=== PATIENT | male | born 2005 ===

== ENCOUNTER 2025-08-05 12:50 | Outpatient (AMB) | payer OTHER, SELFPAY ==
--- NOTE | 2025-08-05 12:55 | MHC.PC.OV ---
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 Urology Physician Assistant Required: No Accompanied by: Self / Same As Patient Allergies pollen extracts Allergy (Unknown, Verified 08/05/25 13:17) Unknown Medication List - Last Reconciled 08/05/25 by IVONNE Layton No Known Home Meds Tobacco use date assessed: 08/05/25 Dental Screening Dental Screen Date: 08/05/25 Did you have a dental visit in the last 12 months?: Yes Did you have a dental problem in the last 6 months where you did not have access to dental care?: No Was dental information given to patient?: Patient has dentist HPI [employer]OUR[employer]IAN [employer] 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 He is here with complaints of a cough producing blood-tinged sputum. He reports these symptoms started about three days ago and are accompanied by a stuffy nose and sore throat. He also experienced headache and body aches on the first day, but these symptoms have since subsided. He denies fever or chills. He notes an episode of nearly choking on what he described as sticky saliva while lying down. The patient reports occasional chest pain that occurs roughly every two weeks, comes on suddenly, and resolves on its own. This pain is not associated with dizziness, shortness of breath, or heart palpitations. His past medical history is significant for asthma and a pollen allergy. He previously used an inhaler for his asthma but does not use it much now and denies current shortness of breath. He also has a history of constipation and was supposed to see a nanoscience technician for it. He is scheduled for an ADHD evaluation for medication on the and has been seeing a therapist monthly. Family history is positive for asthma in his sister and an unspecified cancer in his mother. He takes no current medications and his last visit with his power press supervisor was about a year ago. Health Maintenance - The patient's last visit with a power press supervisor was approximately one year ago. - He is scheduled for an ADHD evaluation on the to consider medication options. 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 1. Little interest or pleasure in doing things: not at all 2. Feeling down, depressed, or hopeless: not at all 3. Trouble falling or staying asleep, or sleeping too much: not at all 4. Feeling tired or having little energy: not at all 5. Poor appetite or overeating: not at all 6. Feeling bad about yourself - or that you are a failure or have let yourself or your family down: not at all 7. Trouble concentrating on things, such as reading the newspaper or watching television: not at all 8. Moving or speaking so slowly that other people could have noticed. Or the opposite - being so fidgety or restless that you have been moving around a lot more than usual: not at all 9. Thoughts that you would be better off or of hurting yourself in some way: not at all Total score: 0 Depression Screening Interpretation: Negative Depression Screening Done: Yes 34362 - PHQ-9 Billing: Yes Source: Developed by Drs. Real Mendoza, Abbey Mckee, Rufino Carmona and colleagues, with an educational marshall from [employer]. Thrive Questionnaire I am a: Patient What is your living situation today?: I have a steady place to live Within the past 12 months, did the food you bought not last and you didn't have the money to get more?: I choose not to answer this question Within the past 12 months, did you worry whether your food would run out before you got money to buy more?: Never true Do you have trouble paying for medicines?: No Do you have trouble getting transportation to medical appointments?: No Do you have trouble paying your heating and electricity bill?: No Do you have trouble taking care of your child, family member or friend?: No Do you have trouble with day-to-day activities such as bathing, preparing meals, shopping, managing finances, etc.?: No Are you currently unemployed and looking for a job?: No Are you interested in more education?: I choose not to answer this question Please select the resources that you would like help with: None Currently or been in a relationship where the following occur: No concerns reported THRIVE Score: 0 AUDIT C Alcohol Use Questionnaire (AUDIT-C) 1. How often do you have a drink containing alcohol?: Never Total Score: 0 DWAINE-7 AMB Questionnaire DWAINE-7 Feeling nervous, anxious, or on edge: 0 = Not at all Not being able to stop or control worryin = Not at all Worrying too much about different things: 0 = Not at all Trouble relaxin = Not at all Being so restless that it is hard to sit still: 0 = Not at all Becoming easily annoyed or irritable: 0 = Not at all Feeling afraid as if something awful might happen: 0 = Not at all Total DWAINE-7 score (0-4 normal; 5-9 mild; 10-14 moderate; 15-21 severe): 0 Source: Developed by Drs. Real Mendoza, Abbey Mckee, Rufino Carmona and colleagues, with an educational marshall from [employer]. DWAINE-7 Assessment Billing DWAINE-7 Assessment Tool: DWAINE-7 Assessment 82772 Review of Systems Narrative Review of Systems - General: Denies fever and chills; reports initial body aches that have resolved. - HEENT: Reports stuffy nose, sore throat, and ear pain on the first day of symptoms, which has since resolved. Reports coughing up small amounts of blood. Denies congestion. - Respiratory: Denies cough from the chest or shortness of breath. - Cardiovascular: Reports intermittent chest pain occurring every two weeks. Denies heart palpitations. - Gastrointestinal: Reports feeling nauseous for the past two days but has been able to perform normal activities. Denies heartburn or indigestion. Reports constipation. - Neurological: Reports a headache on the first day of symptoms. Const Denies headache(s) Eyes Denies loss of vision ENT Denies vertigo, Denies dizziness, Denies headache(s), Reports nasal congestion, Reports post nasal drip and Reports sore throat (Mild) Card Reports chest pain (On and off), Denies leg edema and Denies lightheadedness Resp Reports cough (Occasional), Reports hemoptysis (Subsided) and Denies wheezing GI Denies abdominal pain, Denies melena, Reports constipation, Denies diarrhea and Denies vomiting Denies dysuria, Denies urinary frequency and Denies urinary urgency Musc Denies arthralgias, Denies joint swelling, Denies numbness and Denies tingling Neuro Denies Abnormal speech present, Denies behavioral changes, Denies vertigo, Denies dizziness, Denies headache(s), Denies loss of vision, Denies memory loss, Denies numbness and Denies tingling Psych Denies anxiety, Denies behavioral changes, Denies depression, Denies memory loss and Denies panic attacks Devon/Lymph Denies easy bleeding and Denies easy bruising Aller/Immun Denies wheezing Physical exam (Primary Care) Vital Signs: Last Vital Signs Pulse 78 08/05/25 12:56 Resp 18 08/05/25 12:56 BP 110/68 08/05/25 12:56 Pulse Ox 98 08/05/25 12:56 Oxygen Delivery Method Room Air 08/05/25 12:56 BMI result Body Mass Index 21.2 Tobacco/Smoking Status: Tobacco use Status Tobacco use date assessed 08/05/25 08/05/25 13:08 Patient Tobacco Use Status Never used Tobacco 08/05/25 13:08 e-Cigarette/Vaping Use Never Used 08/05/25 13:08 PHQ-9: PHQ-9 Score PHQ-9: Total score 0 08/05/25 13:19 Depression Screening Interpretation: Negative Currently or been in a relationship where the following occur: No concerns reported Narrative Physical Exam - General: Appears warm to the touch. - HEENT: Nasal examination reveals significant swelling of the nasal passages, nearly obstructing the airway. Left ear canal is occluded with cerumen, obscuring the tympanic membrane, and appears irritated. Right ear is not as impacted. - Lungs: Clear to auscultation bilaterally. - Chest Wall: Palpation reproduces a slight pain. - Abdomen: Tender to palpation in the left upper quadrant. No tenderness in other quadrants. - Extremities: No calf pain on examination. Const General: healthy appearing, no acute distress, alert and awake Nutritional Appearance: well nourished Orientation/consciousness: oriented to person, oriented to place and oriented to time HENMT Ears: Abnormal EAC present cerumen impaction on the left General nose exam: Abnormal mucous membranes and turbinates present boggy bilateral and erythematous bilateral and Nasal discharge present clear bilateral Eyes Conjunctivae: conjunctivae normal Sclerae: sclerae normal Pupils: Equal, round and reactive pupils present Neck Neck: Yes no lymphadenopathy and Yes no JVD Thyroid: Thyroid normal Carotids: no bruits Resp Effort & Inspection: normal respiratory effort and not tachypneic Auscultation: no crackles, no rales, no rhonchi and no wheezes Cardio Rate: regular rate Rhythm: regular rhythm Heart sounds: no murmurs and normal S1 and S2 GI Palpation (GI): Soft to palpation, nontender, no hepatomegaly and no splenomegaly Auscultation: normal bowel sounds General: Yes no CVA tenderness Back/Spine/Pelvis Back: no CVA tenderness Skin General skin exam: no rashes or lesions noted and dry skin Neuro General: oriented to person, oriented to place and oriented to time Cranial nerves: Yes Equal, round and reactive pupils present Speech: No Abnormal speech present Gait exam (Neuro): Normal gait present Motor exam (neuro): no tremor noted Extrem Right upper extremity: full ROM Left upper extremity: full ROM Right lower extremity: full ROM; no edema Left lower extremity: full ROM; no edema Psych Mental Status: mental status grossly normal Speech and movement: Normal speech and movement present Affect: normal affect Attitude: cooperative Thought process: Normal thought process present Coding Level of Care Code New Pt Level 4 (17930) Diagnoses Other chest pain R07.89 Chest pain type: other chest pain Asthma, unspecified asthma severity, unspecified whether complicated, unspecified whether persistent J45.909 Asthma severity: unspecified severity Asthma persistence: unspecified Asthma complication type: unspecified Upper respiratory tract infection, unspecified type J06.9 URI type: unspecified URI Cough with hemoptysis R04.2 Attention deficit hyperactivity disorder (ADHD), unspecified ADHD type F90.9 Attention deficit-hyperactivity disorder type: unspecified Bilateral impacted cerumen H61.23 Laterality: bilateral Rhinosinusitis J32.9 Additional Codes PHQ-9 - 60457 - PHQ-9 Billing: Yes ([id number]) DWAINE-7 Assessment Billing - DWAINE-7 Assessment Tool: DWAINE-7 Assessment 74611 ([id number]) Time Spent (min) 38 Assessment & Plan Assessment & Plan (1) Chest pain: Code(s): R07.9 - Chest pain, unspecified Category: Medical Qualifiers: Chest pain type: other chest pain Qualified Code(s): R07.89 - Other chest pain Plan: EKG normal in office. Suspect to be acid reflux related. Omeprazole 20 mg daily ordered (2) Asthma: Code(s): J45.909 - Unspecified asthma, uncomplicated Category: Medical Qualifiers: Asthma severity: unspecified severity Asthma persistence: unspecified Asthma complication type: unspecified Qualified Code(s): J45.909 - Unspecified asthma, uncomplicated Plan: Reports has been symptoms intermittently, infrequently. Albuterol sulfate 90 mcg/actuation 2 puffs inhalation Q 4-6 hours p.r.n. ordered. (3) Upper respiratory infection: Code(s): J06.9 - Acute upper respiratory infection, unspecified Category: Medical Qualifiers: URI type: unspecified URI Qualified Code(s): J06.9 - Acute upper respiratory infection, unspecified Plan: Respiratory panel and chest x-ray ordered to further evaluate. (4) Cough with hemoptysis: Code(s): R04.2 - Hemoptysis Category: Medical Plan: Suspected to be postnasal drip with bloody secretions. Irritated and dried up blood noted in nasal passage, along with boggy turbinates. The patient reports coughing up purulent drainage on and off. Lungs are clear, no shortness of breath. Purulent drainage is suspected to be coming from nasal passage. No purulent drainage in his a passage on exam today and the patient reports that he has not been coughing up anymore purulent drainage for 1 day. Prednisone tapered ordered to decrease the inflammation in the nasal passage. The patient was also instructed to use Claritin 10 mg daily for 7 days and then as needed daily. (5) ADHD: Code(s): F90.9 - Attention-deficit hyperactivity disorder, unspecified type Category: Medical Qualifiers: Attention deficit-hyperactivity disorder type: unspecified Qualified Code(s): F90.9 - Attention-deficit hyperactivity disorder, unspecified type Plan: Patient reports that he has an appointment to be evaluated for his ADHD and to be possibly placed on medication. We will continue to monitor. (6) Cerumen impaction: Code(s): H61.20 - Impacted cerumen, unspecified ear Category: Medical Qualifiers: Laterality: bilateral Qualified Code(s): H61.23 - Impacted cerumen, bilateral Plan: Instruct the patient to purchase Debrox ear drops to soften cerumen and schedule appt for ear cleaning. (7) Rhinosinusitis: Code(s): J32.9 - Chronic sinusitis, unspecified Category: Medical Plan: Augmentin b.i.d. x7 days ordered along with prednisone tapered. Increase fluid intake. Plan Plan Patient was informed and verbally consented to the use of an ambient scribe for clinic note documentation during this visit. 1. Upper Respiratory Infection With Epistaxis The patient's current symptoms, including cough with blood, stuffy nose, and sore throat, are likely due to an upper respiratory infection with postnasal drip. The physical exam finding of severely swollen nasal passages supports this assessment. The blood in his sputum is believed to be from his nose, dripping into the back of his throat. To further evaluate his symptoms, a nasal swab and a chest X-ray are planned for today. 2. Chest Pain, Unspecified The patient's intermittent chest pain is reproducible with palpation, suggesting a musculoskeletal or inflammatory cause rather than a cardiac one. Gastroesophageal reflux is also a likely contributor, as the patient has tenderness in the epigastric area. To rule out other causes, a chest X-ray will be obtained today. 3. Follow-Up The patient will undergo lab work tomorrow since he has already eaten today. A follow-up appointment is scheduled in seven weeks to review all results and conduct a complete physical examination. Discussion Notes I explained to the patient that his symptoms are likely interconnected. I noted the severe swelling in his nasal passages, which is likely causing postnasal drip and contributing to his cough and sore throat. I advised him that the blood he is coughing up is probably coming from his nose and dripping down his throat. Regarding the chest pain, I discussed that since the pain is reproducible on palpation, it is likely related to inflammation of the muscles or joints in the chest wall, rather than a cardiac issue. I also explained that acid reflux can cause chest pain and that his abdominal tenderness could be related to this. Although I suspect these causes, I stressed that we will rule out everything to be certain, especially given his young age. I ordered a nasal swab and a chest X-ray to be done today, with labs to be drawn tomorrow since he had already eaten. I recommended he go to the hospital for these tests and wrote down the instructions for him. A follow-up appointment was scheduled in seven weeks to review the results and perform a complete physical. Patient Instructions - Please go to the hospital today to get a nasal swab and a chest X-ray. - You will need to get blood tests (labs) done tomorrow, as you have already eaten today. - Your orders for these tests are in the electronic system, but you will also receive a paper printout. - We have scheduled a follow-up appointment for you in seven weeks to go over your test results and do a full physical exam. Orders: Orders Complete Blood Count Auto Diff 08/05/25 J06.9 - Acute upper respiratory infection, unspecified, Z00.00 - Encounter for general adult medical examination without abnormal findings Erythrocyte Sedimentation Rate 08/05/25 J06.9 - Acute upper respiratory infection, unspecified, Z00.00 - Encounter for general adult medical examination without abnormal findings CRP High Sensitivity 08/05/25 J06.9 - Acute upper respiratory infection, unspecified, Z00.00 - Encounter for general adult medical examination without abnormal findings Vitamin D 25-OH Total 08/05/25 J06.9 - Acute upper respiratory infection, unspecified, Z00.00 - Encounter for general adult medical examination without abnormal findings XR chest 2V 08/05/25 R04.2 - Hemoptysis SARS-CoV2/FLU/RSV 08/05/25 J06.9 - Acute upper respiratory infection, unspecified, Z00.00 - Encounter for general adult medical examination without abnormal findings TSH reflex Free T4 08/05/25 J06.9 - Acute upper respiratory infection, unspecified, Z00.00 - Encounter for general adult medical examination without abnormal findings UA CC w/rflx Micro + Cult 08/05/25 J06.9 - Acute upper respiratory infection, unspecified, Z00.00 - Encounter for general adult medical examination without abnormal findings Lipid Panel 08/05/25 J06.9 - Acute upper respiratory infection, unspecified, Z00.00 - Encounter for general adult medical examination without abnormal findings Comprehensive Hazard. Panel Fast 08/05/25 J06.9 - Acute upper respiratory infection, unspecified, Z00.00 - Encounter for general adult medical examination without abnormal findings Medications: New albuterol sulfate 90 mcg/actuation (Ventolin HFA) 2 puffs inhalation Q4-6H PRN 8.5 grams 3RF shortness of breath or wheezing loratadine (Claritin) 10 mg PO DAILY PRN 60 tabs 2RF allergy symptoms loratadine (Claritin) 10 mg PO DAILY PRN 60 tabs 2RF allergy symptoms prednisone see taper instructions take 4 tabs x 2 days, then 3 tabs x 2 days, then 2 tabs x2 days, then 1 tab x 2 days=20 tabs for eight days 10 mg PO DIRECTED 20 tabs 0RF prednisone see taper instructions take 4 tabs x 2 days, then 3 tabs x 2 days, then 2 tabs x2 days, then 1 tab x 2 days=20 tabs for eight days 10 mg PO DIRECTED 20 tabs 0RF amoxicillin-pot clavulanate 875-125 mg 1 tab PO BID 14 tabs 0RF 7 days omeprazole 20 mg PO DAILY 90 caps 2RF albuterol sulfate 90 mcg/actuation (Ventolin HFA) 2 puffs inhalation Q4-6H PRN 8.5 grams 3RF shortness of breath or wheezing Patient Instructions: Patient return in 7 weeks for for physical or sooner for any concerns.
[2025-08-05 12:56] VITALS: BP 110/68; PULSE 78; RESP 18; O2SAT 98; BMI 21.2
== END 2025-08-05 14:10 | disposition home or self-care (01) ==
LOC: HO.HMCH 12:51
DX: R07.89 Other chest pain (principal); J45.909 Unspecified asthma, uncomplicated; J06.9 Acute upper respiratory infection, unspecified; R04.2 Hemoptysis; F90.9 Attention-deficit hyperactivity disorder, unspecified type; H61.23 Impacted cerumen, bilateral; J32.9 Chronic sinusitis, unspecified

== ENCOUNTER → 2025-08-05 15:05 | Outpatient (BNV) | payer OTHER, SELFPAY | PROVIDERS: Visit Provider Radiology Diagnostic Radiology | DX: R04.2 Hemoptysis (principal) | CPT/HCPCS: 71046 ==